=== PATIENT | female | born 1945 | race Caucasian/White ===

== ENCOUNTER 2017-07-24 18:40 | Emergency (ER) | payer OTHER, MEDICAID | END 2017-07-24 19:10 | disposition home or self-care (01) | LOC: E/R 18:40 | DX: M54.42 Lumbago with sciatica, left side (principal); E11.9 Type 2 diabetes mellitus without complications; Z79.4 Long term (current) use of insulin; Z79.82 Long term (current) use of aspirin | CPT/HCPCS: 99284 ==

== ENCOUNTER 2018-09-24 03:05 | Emergency (ER) | payer OTHER ==
[2018-09-24] MEDS: IBUPROFEN 600 MG TAB PO (04:20)
== END 2018-09-24 05:24 | disposition home or self-care (01) ==
LOC: E/R 03:05
DX: R07.81 Pleurodynia (principal); E11.9 Type 2 diabetes mellitus without complications; Z79.4 Long term (current) use of insulin; Z79.82 Long term (current) use of aspirin
CPT/HCPCS: 71045; 71100; 99283-25